=== PATIENT | male | born 2000 | race Caucasian/White ===

== ENCOUNTER 2021-08-16 11:48 | Emergency (ER) | payer OTHER ==
[~2021-08-16 11:48] MED LIST: ISOVUE-370 76%-LOCM 1 ML ONE
[2021-08-16] MEDS ORDERED: Fentanyl 100 MCG/2 ML VIAL ONE (11:57)
[2021-08-16] MEDS ORDERED: Boostrix 0.5 ML (Tdap) VIAL ONE (11:57)
[2021-08-16] MEDS ORDERED: Lidocaine 1% w/Epinephrine 1:100K 20 ML VIAL ONE (11:59)
[2021-08-16] MEDS ORDERED: Ondansetron PF 4 MG/2 ML Vial ONE (12:34)
== END 2021-08-16 13:30 | disposition home or self-care (01) ==
LOC: ERS 11:48
DX: S06.0X9A Concussion with loss of consciousness of unspecified duration, initial encounter (principal); S80.811A Abrasion, right lower leg, initial encounter; F17.220 Nicotine dependence, chewing tobacco, uncomplicated; W17.89XA Other fall from one level to another, initial encounter
CPT/HCPCS: 70450; 71260; 72125; 74177; 90471; 90715; 96374; 96375; G0390; J2405; J3010; Q9966